=== PATIENT | female | born 1945 | race Caucasian/White ===

== ENCOUNTER 2025-05-10 07:46 | Emergency (ER) | payer MEDICARE, SELFPAY ==
[2025-05-10 07:52] VITALS: BP 164/80; PULSE 96; RESP 15; TEMP 36.3; O2SAT 97
[2025-05-10 07:57] VITALS: BP 164/80; PULSE 96; RESP 15; TEMP 36.3; O2SAT 97
--- NOTE | 2025-05-10 08:35 | W.ED.GENAD ---
Discharge Plan Disposition Patient Disposition: Home Condition: Good Discharge Details Clinical Impression: Photosensitivity, Photosensitivity dermatitis Primary Care Provider: Renetta,Local ED Provider: Queta Sanz Home Meds and New Rx's Prescriptions: New prednisone 20 mg tablet 40 mg PO DAILY 4 Days Qty: 8 0RF Continued verapamil PO Stiolto Respimat 2.5-2.5 mcg/actuation mist 2 inh inhalation DAILY aspirin 325 mg capsule 325 mg PO DAILY Discharge Instructions Instructions: Skin Rash ED Additional Instructions: Your arm swelling and redness is most consistent with a photosensitivity reaction which may be associated with your prior sensitivities. Given the worsening swelling, I have prescribed you a steroids for a few days which should releive the adverse reaction symptoms. Please continue to wear long sleeve/protective clothing. Consider sun shirts. Encourage hydration. Topical cream for itching or antihistamines. If you develop spreading of the redness, shortness of breath, pain, fevers or other new/worsening symptoms, please seek care urgently once again. A mineral based SPF may be less irritating to your skin given your previous allergies to SPF. Referral for local PCP has been sent. [facility] General Date/Time Provider Initiated Documentation: 05/10/25 08:35. Limitations to Documentation: no limitations. Information obtained by: patient and RN notes reviewed. History of Present Illness 79 year old F presents to the emergency department with the chief complaint of left arm redness, warmth, swelling, itching, described as moderate and similar to prior episodes (previous photosensitivity rxn), Quality is described as other (she denies any pain), and is localized to the left and upper extremity. Patient reports no radiation. Patient started experiencing this day(s) and it has been constant. No relieving factors improve symptom(s), Other factors that worsen symptoms (being in sun) . Patient notes no other symptoms.. Patient did receive the following treatments prior to arrival, other (tried topical betamethasone) Related Data Home Medications ?Medication ?Instructions ?Recorded ?Confirmed aspirin 325 mg capsule 325 mg PO DAILY 05/10/25 05/10/25 prednisone 20 mg tablet 40 mg (2 x 20 mg) PO DAILY 4 days 05/10/25 #8 tabs tiotropium 2.5 mcg-olodaterol 2.5 2 inh inhalation DAILY 05/10/25 05/10/25 mcg/actuation mist for inhalation (Stiolto Respimat) verapamil PO 05/10/25 Previous Rx's ?Medication ?Instructions ?Recorded prednisone 20 mg tablet 40 mg (2 x 20 mg) PO DAILY 4 days 05/10/25 #8 tabs Allergies Allergy/AdvReac Type Severity Reaction Status Date / Time No Known Allergies Allergy Unverified 05/10/25 07:58 General Stated Complaint: Cellulitis JIMBO: 4 Review of Systems Constitutional Constitutional: Reports as per HPI, Denies chills and Denies fever(s) Cardiovascular Cardiovascular: Denies dyspnea Respiratory Respiratory: Reports as per HPI, Denies dyspnea and Denies wheezing Musculoskeletal Musculoskeletal: Reports as per HPI Integumentary/Breasts Skin/Breast: Reports as per HPI Neurologic Neurologic: Reports as per HPI, Denies sensory deficit and Denies paresthesias Allergic/Immunologic Allergic/Immunologic: Denies wheezing Exam Const General: cooperative, healthy appearing, comfortable, no acute distress and well developed Nutritional Appearance: average body habitus and well nourished Orientation: alert and awake Resp Effort & Inspection: normal respiratory effort, able to speak in complete sentences and no respiratory distress Cardio Rate: regular rate Rhythm: regular rhythm Skin General skin exam: erythema (warm, swollen, non-tender, few excoriations) Neuro General: patient alert and patient awake Cognition: normal cognition Speech: speech normal Gait: normal gait Sensory Exam: no sensory deficits noted Extrem Elbow/forearm/wrist images:  1. area of swelling and redness. Warm to the touch. Non-tender. No fluctuance. 2+ distal pulses, intact sensation. Full ROM. Small excorations on anterior surface. We defined area of cessation. Course Vital Signs Vital signs: Vital Signs Temperature 36.3 C L 05/10/25 07:52 Pulse 96 H 05/10/25 07:52 Respiratory Rate 15 05/10/25 07:52 Blood Pressure 164/80 H 05/10/25 07:52 Pulse Oximetry 97 05/10/25 07:52 Temperature 36.3 C L 05/10/25 07:57 Temperature Source Tympanic 05/10/25 07:57 Pulse 96 H 05/10/25 07:57 Respiratory Rate 15 05/10/25 07:57 Blood Pressure 164/80 H 05/10/25 07:57 Blood Pressure Position Sitting 05/10/25 07:57 Pulse Oximetry 97 05/10/25 07:57 Oxygen Delivery Method Room Air 05/10/25 07:57 Oxygen Flow Rate 0 05/10/25 07:57 Pain Level 0 05/10/25 07:57 Medical Decision Making Patient is a pleasant 79-year-old female with past medical history of eczema and previous photosensitivity reactions, presenting with chief complaint of left hand and forearm redness and swelling. She reports that she was outside yesterday and was wearing large patch, three-quarter length sleeves and long pants tried to protect herself but directly where the three-quarter length sleeve. She began developing this area of concern. She reports that she has had similar issues historically, previously associated with use of NSAIDs. She denies any pain. No fevers or chills. States that she did have a few bug bites but these had been healing well without concern. States that the area can be slightly itchy no shortness of breath or wheezing. No discomfort at the arm or paresthesias. On exam, patient appears nontoxic. He is hemodynamically stable. She is denying any fevers or chills recently feels that she is systemically well. She is noted to have a pink her cheek on the left side of her face on the right and she states that this is just associated with the drive here and sun exposure on that side. Driving was historically when she received her previous photosensitivity reactions. Exam of the left arm reveals a well-demarcated area consistent with a three-quarter length sleeve that distal to where that would have cut off, she has erythema and swelling. These areas are nontender. No evidence suggest abscess such as fluctuance or tenderness. No drainage. She does have some areas of excoriation and she does report that this can be itchy. She neurovascularly intact, full range of motion. The swelling seems to be more associated with the forearm although the redness does extend to the hand. Patient and I did discuss differentials. She was initially questioning if this could have been infectious but, particularly given the lack of discomfort with palpation or movement, I find this a low likelihood. Area has been itchy, increasing concern for more reactive process. She has had no trauma. She is also systemically well also no signs to suggest sepsis or bacteremia. With the well-defined demarcated area, more concerned about worsening photosensitivity, particularly with her history of previous reactions. Patient is on aspirin but feel that discussion of removing this would be appropriate more with her primary care. This patient resides up here for good portion of the year, will refer her to a local primary care as well. As the symptoms seem to be worsening slightly, will prescribe a short duration of steroids. Also get her some further information on SPF alternatives. Patient does have allergy to SPF's in the past, we will try to sort out some alternatives for her that may be less irritating. We also discussed different types of clothing that may have had further sun protection and I advised that she is get a need for coverage at this point as she does seem to becoming more sensitive to the sun. Discussed supportive care and further prevention. Return precautions discussed. All of her questions and concerns were addressed and she is in agreement this plan. PFSH All Active Problems (Updated 05/10/25 @ 08:47 by ZAID [place]) Photosensitivity dermatitis (Acute) Photosensitivity (Acute) Social History Smoking/Tobacco Use Status: Never Smoking risk assessment performed?: Yes Alcohol Intake: current Alcohol Intake frequency: a few times a week Alcohol type: wine Drug use: Never Substance use type: does not use Housing: house [facility] Have you Been Recently Intoxicated or Drunk Within the Last 30 days?: No Have you Ever Experienced Previous Episodes of Alcohol Withdrawal?: No Have you ever Experienced Withdrawal Seizures?: No Have you ever Experienced Delirium Tremens(DT)s?: No Have you ever undergone Alcohol Rehabilitation Treatment (i.e, inpt ot outpatient treatment programs)?: No Have you ever Experienced Blackouts?: No Have you ever Combined Alcohol with other Downers within the last 90 days?: No Have you ever Combined Alcohol with any other Substance of Abuse during the last 90 days?: No Result: 0
== END 2025-05-10 09:00 | disposition home or self-care (01) ==
PROVIDERS: Emergency Provider Physician Assistant
DX: L56.8 Other specified acute skin changes due to ultraviolet radiation (principal)
CPT/HCPCS: 99283